=== PATIENT | female | born 1960 | race Caucasian/White ===

== ENCOUNTER → 2018-04-24 | Outpatient (CLI) | payer OTHER ==
--- NOTE | 2018-04-24 16:34 | HKNOTE ---
DATE OF SERVICE: 04/24/2018 HISTORY OF PRESENT ILLNESS: Ms. Boateng is a 57-year-old right hand dominant female who is compl aining of bilateral shoulder pain. The pain is worse at night that interferes with her sleep. She d enies any history of trauma. She denies any numbness or tingling. She has previously seen Dr. Juan Akbar. PHYSICAL EXAMINATION: Right shoulder: No deformities. A 180 degrees of forward flexion, 180 degrees of abduction, 50 degr ees of extension, 90 degrees of external rotation, 90 degrees of internal rotation. Positive Johansen test, positive Neer's test, negative belly press, negative liftoff. Left shoulder: No deformities. A 180 degrees of forward flexion, 180 degrees of abduction, 50 degre es of extension, 90 degrees of external rotation, 90 degrees of internal rotation. Positive Johansen test, positive Neer's test, negative belly press, negative liftoff. DIAGNOSIS: A 57-year-old female with bilateral rotator cuff tendinitis. PLAN: We will request authorization for outpatient physical therapy. She will follow up in 3 months . If she continues to have pain at that time, we will request authorization for bilateral shoulder M RI and bilateral shoulder steroid injections. Dictated By: SHER ROCHA/PATRICE Conf#: [id number] DID#: [id number]
--- NOTE | 2018-04-25 18:01 | CONS ---
DATE OF ADMISSION: 04/24/2018 DATE OF CONSULTATION: TYPE OF CONSULTATION: Preoperative gastroenterology consultation note. Dear Dr. Rubio: I thank you very much for this kind referral. HISTORY OF PRESENT ILLNESS: Ms. Krista Shannon is a 57-year-old female patient who has been refe rred to me for further evaluation of change in the bowel habit. No past history of colon neoplasm. The patient never had screening colonoscopy. The patient also complains of upper abdominal pain, not responding to symptomatic medical therapy. No past history of peptic ulcer disease. Not on nonster oidal anti-inflammatory agents. Appetite is good and no weight loss. No history of gallstones or li jaxon disease. Not a hypertensive or diabetic. No heart disease, lung problem or kidney disease. She is status post hysterectomy for cancer. SOCIAL HISTORY: Nonsmoker. No alcohol abuse. FAMILY HISTORY: No family history of gastrointestinal tract neoplasm. ALLERGIES: NO DRUG ALLERGIES. MEDICATIONS: Gabapentin. PHYSICAL EXAMINATION: VITAL SIGNS: She is 5 feet 7 inches tall and weighs 232 pounds. HEART: Normal heart sounds. LUNGS: Clear. ABDOMEN: Soft, no masses. Normal bowel sounds. NEUROLOGIC: Normal neurological exam. IMPRESSION: 1. Change in the bowel habit. 2. The patient needs screening colonoscopy. 3. Upper abdominal pain, not responding to therapy. 4. Status post hysterectomy for uterine cancer. PLAN: 1. Screening colonoscopy. 2. Omeprazole 40 mg p.o. q.a.m. 3. Abdominal ultrasound and upper endoscopy for further evaluation of upper abdominal pain. 4. Because of the obesity with a short thick neck, she needs monitored anesthesia care. The procedures and possible complications are well explained to the patient. She understands and con sents to the procedures. I thank you once again. With warmest personal regards, Dictated By: ROCIO MARTINEZ MD GD/NTS Conf#: [id number] DID#: [id number] CC: EKATERINA RUBIO MD;*EndCC*
== END | disposition home or self-care (01) ==
LOC: HKI 14:26
PROVIDERS: ATTEND Orthopaedic Surgery Adult Reconstructive Orthopaedic Surgery
DX: M75.102 Unspecified rotator cuff tear or rupture of left shoulder, not specified as traumatic (principal); M75.101 Unspecified rotator cuff tear or rupture of right shoulder, not specified as traumatic
CPT/HCPCS: G0463

== ENCOUNTER 2018-05-22 08:54 | Day surgery (SDC) | payer OTHER ==
--- NOTE | 2018-04-25 18:01 | CONS ---
DATE OF ADMISSION: 04/24/2018 DATE OF CONSULTATION: TYPE OF CONSULTATION: Preoperative gastroenterology consultation note. Dear Dr. Rubio: I thank you very much for this kind referral. HISTORY OF PRESENT ILLNESS: Ms. Krista Shannon is a 57-year-old female patient who has been refe rred to me for further evaluation of change in the bowel habit. No past history of colon neoplasm. The patient never had screening colonoscopy. The patient also complains of upper abdominal pain, not responding to symptomatic medical therapy. No past history of peptic ulcer disease. Not on nonster oidal anti-inflammatory agents. Appetite is good and no weight loss. No history of gallstones or li jaxon disease. Not a hypertensive or diabetic. No heart disease, lung problem or kidney disease. She is status post hysterectomy for cancer. SOCIAL HISTORY: Nonsmoker. No alcohol abuse. FAMILY HISTORY: No family history of gastrointestinal tract neoplasm. ALLERGIES: NO DRUG ALLERGIES. MEDICATIONS: Gabapentin. PHYSICAL EXAMINATION: VITAL SIGNS: She is 5 feet 7 inches tall and weighs 232 pounds. HEART: Normal heart sounds. LUNGS: Clear. ABDOMEN: Soft, no masses. Normal bowel sounds. NEUROLOGIC: Normal neurological exam. IMPRESSION: 1. Change in the bowel habit. 2. The patient needs screening colonoscopy. 3. Upper abdominal pain, not responding to therapy. 4. Status post hysterectomy for uterine cancer. PLAN: 1. Screening colonoscopy. 2. Omeprazole 40 mg p.o. q.a.m. 3. Abdominal ultrasound and upper endoscopy for further evaluation of upper abdominal pain. 4. Because of the obesity with a short thick neck, she needs monitored anesthesia care. The procedures and possible complications are well explained to the patient. She understands and con sents to the procedures. I thank you once again. With warmest personal regards, Dictated By: ROCIO MARTINEZ MD GD/NTS Conf#: [id number] DID#: [id number] CC: EKATERINA RUBIO MD;*EndCC*
[~2018-05-22] VITALS: Ht 170.2 cm; Wt 106.0 kg
[2018-05-22 09:44] VITALS: Ht 170.2 cm; Wt 106.0 kg
[2018-05-22] MEDS ORDERED: GABAPENTIN DAILY (09:48)
[2018-05-22] MEDS ORDERED: OMEP40CA6 PO (09:48)
[2018-05-22] MEDS ORDERED: ALLERGY MED. (09:48)
[2018-05-22 10:23] VITALS: BP 156/80; PULSE 62; RESP 12
--- NOTE | 2018-05-22 10:30 | PREAC ---
Date/Time of Note Date/Time of Note DATE: 05/22/18 TIME: 10:30 Anesthesia Eval and Record Evaluation Time Pre-Procedure Interview DATE: 05/22/18 TIME: 10:30 Age 57 Sex female NPO: 8 hrs Preoperative diagnosis pain Planned procedure EGD colonoscopy Past Medical History Past Medical History: None Surgery & Anesthesia Issues No known issue Meds Anticoagulation: No Beta Donavan within 24 hr: No Reason Beta Donavan not given: Pt. not on B-Donavan Reported Medications [Allergy Med.] No Conflict Check 05/22/18 Omeprazole* (Omeprazole*) 40 Mg Capsule.dr, 40 MG PO DAILY, #30 CAP 05/22/18 [Gabapentin Daily] No Conflict Check 05/22/18 Meds reviewed: Yes Allergies Uncoded Allergies: pollen allergy (Allergy, Intermediate, sinus/cough, 05/22/18) Allergies Reviewed: Yes Labs/Studies Labs Reviewed: Reviewed by anesthesiologist test: N/A Studies: ECG (n/a), CXR (n/a) Pre-procedure Exam Airway: Adequate mouth opening Mallampati: Mallampati I Teeth: Normal Lung: Normal Heart: Normal ASA Physical Status ASA physical status: 1 Emergency: None Planned Anesthetic General/MAC: MAC Planned Pain Management Parenteral pain med Pre-operative Attestations Prior to commencing anesthesia and surgery, the patient was re-evaluated, there was verification of: *The patient's identity *The results of appropriate recent lab work and preoperative vital signs *The above evaluation not changing prior to induction *Anesthetic plan, risk benefits, alternative and complications discussed with patient/family; questions answered; patient/family understands, accepts and wishes to proceed. OSITO GERMAIN MD May 22, 2018 10:30
[2018-05-22] MEDS ORDERED: PROPOFOL 20 ML ONE ×2 (10:31→11:20)
[2018-05-22] MEDS ORDERED: FENTAnyl 50 MCG/ML VIAL ONE (10:31)
[2018-05-22 11:29] VITALS: BP 158/67; RESP 11
--- NOTE | 2018-05-23 14:51 | PAC ---
Date/Time of Note Date/Time of Note DATE: 05/23/18 TIME: 14:51 Post-Anesthesia Notes Post-Anesthesia Note Last documented vital signs Vital Signs Date Tem97.8p Pulse Resp B/P (MAP) Pulse Ox O2 O2 Flow FiO2 Time Delivery Rate 05/22/18 65 11 158/67 97 11:29 (97) 05/22/18 97.3 62 Room Air 10:23 Activity: WNL Respiratory function: WNL Cardiovascular function: WNL Mental status: Baseline Pain reasonably controlled: Yes Hydration appropriate: Yes Nausea/Vomiting absent: No OSITO GERMAIN MD May 23, 2018 14:51
== END 2018-05-22 11:20 | disposition home or self-care (01) ==
LOC: GIL 08:54
PROVIDERS: ATTEND Internal Medicine Gastroenterology
DX: Z12.11 Encounter for screening for malignant neoplasm of colon (principal); K64.8 Other hemorrhoids; K29.60 Other gastritis without bleeding
CPT/HCPCS: 43239; 45378; 88305; J3010